=== PATIENT | female | born 1960 | race Caucasian/White ===

== ENCOUNTER 2016-06-16 02:40 | Observation (INO) | payer OTHER ==
[2016-06-16] MEDS ORDERED: MAG HYDROX/AL HYDROX/SIMETH 30 ML UDC PO STA (03:16)
[2016-06-16] MEDS ORDERED: LIDOCAINE VISCOUS 2% 15 ML UDC MM STA (03:16)
[2016-06-16] MEDS ORDERED: ASPIRIN CHEW 81 MG TABLET PO STA (03:17)
[2016-06-16] MEDS ORDERED: MAG HYDROX/AL HYDROX/SIMETH 30 ML UDC ONE (03:23)
[2016-06-16] MEDS ORDERED: LIDOCAINE VISCOUS 2% 15 ML UDC MM ONE (03:23)
[2016-06-16] MEDS ORDERED: ASPIRIN CHEW 81 MG TABLET ONE (03:23)
[2016-06-16] MEDS ORDERED: NITROGLYCERIN SL 0.4 MG TABLET SL STA (03:38)
[2016-06-16] MEDS ORDERED: NITROGLYCERIN SL 0.4 MG TABLET SL ONE ×2 (03:39→03:40)
[2016-06-16] MEDS ORDERED: ACETAMINOPHEN 1,000 MG/100 ML 100 ML IV STA (03:47)
[2016-06-16] MEDS ORDERED: ACETAMINOPHEN 1,000 MG/100 ML 100 ML IV ONE (03:48)
[2016-06-16] MEDS ORDERED: ONDANSETRON 4 MG/2 ML VIAL IVP STA (03:48)
[2016-06-16] MEDS ORDERED: ONDANSETRON 4 MG/2 ML VIAL ONE (03:49)
[2016-06-16] MEDS ORDERED: SODIUM CHLORIDE 0.9% 500 ML IV ONE (04:02)
[2016-06-16] MEDS ORDERED: SODIUM CHLORIDE FLUSH 0.9% 10 ML SYRINGE IVP PRN (05:12)
[2016-06-16] MEDS ORDERED: HYDROcod/ACETAM 10 MG/325 MG TABLET PO PRN (05:12)
[2016-06-16] MEDS ORDERED: ZOLPIDEM 5 MG TABLET PO PRN (05:12)
[2016-06-16] MEDS ORDERED: HYDROcod/ACETAM 5/325 MG TABLET PO PRN (05:12)
[2016-06-16] MEDS ORDERED: MORPHINE 2 MG/ML SYRINGE IVP PRN (05:12)
[2016-06-16] MEDS ORDERED: ACETAMINOPHEN 325 MG TABLET PO PRN (05:12)
[2016-06-16] MEDS ORDERED: NITROGLYCERIN SL 0.4 MG TABLET SL PRN (05:12)
[2016-06-16] MEDS ORDERED: ONDANSETRON 4 MG/2 ML VIAL IVP PRN (05:12)
[2016-06-16] MEDS ORDERED: SODIUM CHLORIDE FLUSH 0.9% 10 ML SYRINGE IVP SCH (06:00)
[2016-06-16] MEDS ORDERED: IBUPROFEN 800 MG TABLET PO PRN (06:43)
[2016-06-16] MEDS ORDERED: ZOLMITRIPTAN 2.5 MG PO PRN (06:43)
[2016-06-16] MEDS ORDERED: PANTOPRAZOLE 40 MG TABLET PO SCH (07:00)
[2016-06-16] MEDS ORDERED: POLYETHYLENE GLYCOL 3350 17 GM PACKET PO SCH (09:00)
[2016-06-16] MEDS ORDERED: ASPIRIN EC 81 MG TABLET PO SCH (09:00)
[2016-06-16] MEDS ORDERED: ENOXAPARIN 40 MG/0.4 ML SYRINGE SUBQ SCH (09:00)
== END 2016-06-16 09:30 | disposition home or self-care (01) ==
DX: R07.9 Chest pain, unspecified (principal); G43.909 Migraine, unspecified, not intractable, without status migrainosus; Z82.49 Family history of ischemic heart disease and other diseases of the circulatory system; I95.2 Hypotension due to drugs; T46.3X5A Adverse effect of coronary vasodilators, initial encounter; Y92.238 Other place in hospital as the place of occurrence of the external cause
CPT/HCPCS: 36415; 71010; 80053; 80061; 83690; 83721; 84484; 85025; 93005; 93010; 93306; 96374; 99284; A9270; G0378; J0131

== ENCOUNTER 2017-08-08 21:08 | Emergency (ER) | payer OTHER ==
--- NOTE | 2017-08-08 21:31 | ED Physician Documentation ---
PD HPI CHEST PAIN - Stated complaint Stated Complaint: CP/NAUSEA - Chief complaint Chief Complaint: Cardiac - History obtained from History obtained from: Patient - History of Present Illness Timing - onset: Today Timing - onset during: Rest Timing - details: Gradual onset, Intermittant Quality: Pressure, Tightness Location: Left chest, Right chest Radiation: Jaw, Left upper extremity Associated symptoms: Nausea. No: Shortness of air, Diaphoresis, Feeling faint / dizzy Similar symptoms before: Work up / diagnostics Recently seen: Not recently seen - Additional information Additional information: Patient is a 57 year old female with no significant past medical history who is presenting to the emergency department for chest pain. patient states that it started this morning. she had some chest tightness in her left chest. Patient' s father had an appointment that she had to go to so she just tried to ignore it. Patient states that the pain came back tonight so she decided to come back in to get checked out. Patient denies aggravating or alleviating factors. Patient had symptoms like this before but the work up and diagnostics were all negative. PD PAST MEDICAL HISTORY - Past Medical History Past Medical History: Yes Cardiovascular: None Respiratory: None Neuro: Headache/migraine Endocrine/Autoimmune: None GI: Diverticulitis : None HEENT: None Psych: None Musculoskeletal: None Derm: None - Past Surgical History Past Surgical History: Yes General: Appendectomy - Present Medications Home Medications: Ambulatory Orders Medication Instructions Recorded Confirmed Zolmitriptan [Zomig] 2.5 mg PO ONCE PRN 06/17/13 06/16/16 Ibuprofen 800 mg PO TID PRN MDD 2400 mg 06/16/16 06/16/16 Omeprazole [PriLOSEC] 20 mg PO DAILY 06/16/16 06/16/16 - Allergies Allergies/Adverse Reactions: Allergies Allergy/AdvReac Type Severity Reaction Status Date / Time an antifungal for yeast Allergy lip Uncoded 08/08/17 21:29 infections swelling - Social History Does the pt smoke?: No Smoking Status: Never smoker Does the pt drink ETOH?: No Does the pt have substance abuse?: No - Immunizations Immunizations are current?: Yes - POLST Patient has POLST: No Results - Vitals Vitals: Vital Signs - 24 hr 08/08/17 08/08/17 08/08/17 21:13 21:52 22:25 Temperature 36.3 C L Heart Rate 75 70 67 Respiratory 16 15 15 Rate Blood Pressure 166/104 H 145/96 H 136/90 H O2 Saturation 98 98 08/08/17 23:22 Temperature Heart Rate 62 Respiratory 15 Rate Blood Pressure 134/87 H O2 Saturation 95 Oxygen O2 Source Room air - EKG (time done) 2114 Rate: Rate (enter#) (71) Rhythm: NSR [place]: Normal Intervals: Normal NE QRS: Normal Ischemia: Normal ST segments Compare to prior EKG: Unchanged from prior EKG - Labs Labs: Laboratory Tests 08/08/17 08/08/17 08/08/17 21:25 21:25 21:25 WBC 6.1 RBC 4.59 Hgb 13.4 Hct 40.7 MCV 88.6 MCH 29.1 MCHC 32.8 RDW 13.2 Plt Count 294 MPV 8.5 Neut # 3.1 Lymph # 2.2 [place] # 0.5 Eos # 0.2 Baso # 0.1 Absolute Nucleated RBC 0.00 Nucleated RBC % 0.0 D-Dimer Sodium 138 Potassium 3.5 Chloride 104 Carbon Dioxide 25 Anion Gap 9.0 BUN 14 Creatinine 0.7 Estimated GFR (MDRD) 87 L Glucose 93 Calcium 9.2 Total Bilirubin 0.6 AST 41 ALT 46 Alkaline Phosphatase 79 Troponin I < 0.04 B-Natriuretic Peptide Total Protein 7.7 Albumin 4.7 Globulin 3.0 Albumin/Globulin Ratio 1.6 Lipase 27 TSH 08/08/17 08/08/17 08/08/17 21:25 21:25 21:25 WBC RBC Hgb Hct MCV MCH MCHC RDW Plt Count MPV Neut # Lymph # [place] # Eos # Baso # Absolute Nucleated RBC Nucleated RBC % D-Dimer 217.2 Sodium Potassium Chloride Carbon Dioxide Anion Gap BUN Creatinine Estimated GFR (MDRD) Glucose Calcium Total Bilirubin AST ALT Alkaline Phosphatase Troponin I B-Natriuretic Peptide 64 Total Protein Albumin Globulin Albumin/Globulin Ratio Lipase TSH 4.33 08/08/17 23:02 WBC RBC Hgb Hct MCV MCH MCHC RDW Plt Count MPV Neut # Lymph # [place] # Eos # Baso # Absolute Nucleated RBC Nucleated RBC % D-Dimer Sodium Potassium Chloride Carbon Dioxide Anion Gap BUN Creatinine Estimated GFR (MDRD) Glucose Calcium Total Bilirubin AST ALT Alkaline Phosphatase Troponin I < 0.04 B-Natriuretic Peptide Total Protein Albumin Globulin Albumin/Globulin Ratio Lipase TSH - Rads (name of study) chest x-ray Radiology: Final report received (normal) PD MEDICAL DECISION MAKING - ED course Complexity details: reviewed old records, reviewed results, re-evaluated patient , considered differential, d/w patient ED course: Patient was seen and examined at bedside. ekg was performed and was normal sinus rhythm. IV access was gained and labs were drawn. patient was treated with aspirin, zofran and ativan. Patient's blood pressure improved on its own. Patient reported that she had a stress test about two months ago and it was entirely normal. Patient's diagnostics were within normal limits including repeat troponin and d-dimer. While the exact etiology of the patient's pain is uncertain it is unlikely cardiac or pulmonary in nature. Patient had a HEART score of 1 Departure - Departure Disposition: 01 Home, Self Care Clinical Impression: Atypical chest pain Condition: Good Instructions: ED Chest Pain Atypical Unkn Cause Follow-Up: primary,care provider [Other] - As Needed Comments: Your diagnostics today were within normal limits. While it is difficult to say what exactly caused your pain it is unlikely cardiac or pulmonary in nature. It could be caused by gerd, inflammation, anxiety or some combinations of those things. You should try motrin or tylenol if the pain returns. You should follow up with your doctor this week. You may return to the emergency department at any time for new, worsening or uncontrollable symptoms.
[2017-08-08] MEDS ORDERED: LORazepam 2 MG/ML VIAL IVP STA (21:32)
[2017-08-08] MEDS ORDERED: ASPIRIN 325 MG TABLET PO STA (21:32)
[2017-08-08] MEDS ORDERED: ONDANSETRON 4 MG/2 ML VIAL IVP STA (21:32)
[2017-08-08 21:34] LABS: BASOPHILS # (AUTO) 0.1 10^3/uL (0.0-0.1); EOSINOPHILS # (AUTO) 0.2 10^3/uL (0.0-0.7); HGB - HEMOGLOBIN 13.4 g/dL (12.0-16.0); LYMPHOCYTES # (AUTO) 2.2 10^3/uL (1.5-3.5); LYMPHOCYTES % (AUTO) 36.5 %; MEAN CORPUSCULAR HEMOGLOBIN 29.1 pg (27.0-31.0); MEAN CORPUSCULAR HGB CONC 32.8 g/dL (32.0-36.0); MEAN CORPUSCULAR VOLUME 88.6 fL (81.0-99.0); MEAN PLATELET VOLUME 8.5 fL (7.9-10.8); MONOCYTES # (AUTO) 0.5 10^3/uL (0.0-1.0); MONOCYTES % (AUTO) 7.9 %; NEUTROPHILS # (AUTO) 3.1 10^3/uL (1.5-6.6); NEUTROPHILS % (AUTO) 50.6 %; PLT - PLATELET COUNT 294 10^3/uL (130-450); RED BLOOD COUNT 4.59 10^6/uL (4.20-5.40); RED CELL DISTRIBUTION WIDTH 13.2 % (12.0-15.0); WHITE BLOOD COUNT 6.1 x10^3/uL (4.8-10.8)
[2017-08-08 21:44] LABS: ALBUMIN 4.7 g/dL (3.2-5.5); ALBUMIN/GLOBULIN RATIO 1.6 (1.0-2.2); BILIRUBIN,TOTAL 0.6 mg/dL (0.2-1.0); CALCIUM 9.2 mg/dL (8.5-10.3); CREATININE 0.7 mg/dL (0.4-1.0); TOTAL PROTEIN 7.7 g/dL (6.7-8.2)
--- NOTE | 2017-08-08 22:04 | XRAY Report ---
EXAM: CHEST RADIOGRAPHY EXAM DATE: 08/08/2017 09:52 PM. CLINICAL HISTORY: Chest pain. COMPARISON: 06/16/2016. TECHNIQUE: 2 views. FINDINGS: Lungs/Pleura: No focal opacities evident. No pleural effusion. No pneumothorax. Normal volumes. Mediastinum: Heart and mediastinal contours are unremarkable. Other: None. IMPRESSION: Stable negative 2-view chest radiography. [facility] Referring Provider Line: [phone] SITE ID: [id number]
[2017-08-08 23:23] VITALS: BP 134/87
== END 2017-08-08 23:41 | disposition home or self-care (01) ==
LOC: ED 21:08
DX: R07.89 Other chest pain (principal)
CPT/HCPCS: 36415; 71046; 80053; 83690; 83880; 84443; 84484; 85025; 85379; 93005; 96374; 99284; A9270; J2060

== ENCOUNTER 2020-06-28 13:41 | Outpatient (CLI) | payer OTHER ==
--- NOTE | 2020-06-29 09:46 | Mammography Report ---
BILATERAL DIGITAL SCREENING MAMMOGRAM 3D/2D: 06/28/2020 CLINICAL: Routine screening. Comparison is made to exams dated: 02/19/2018 mammogram, 03/21/2017 mammogram, 07/27/2015 mammogram - [facility], 06/09/2004 stereotactic biopsy, 06/09/2004 specimen, and 05/31/2004 mammogram - [facility]. There are scattered fibroglandular elements in both breasts. No significant masses, calcifications, or other findings are seen in either breast. There has been no significant interval change. IMPRESSION: NEGATIVE There is no mammographic evidence of malignancy. A 1 year screening mammogram is recommended. This exam was interpreted at Station ID: [id number]. NOTE: For mammograms, a report in lay terms will be sent to the patient. Approximately 15% of breast malignancies will not be visualized mammographically. In the management of a palpable breast mass, a negative mammogram must not discourage biopsy of a clinically suspicious lesion. Electronically Signed By: Chemo melchor/penrad:06/28/2020 16:32:29 ACR BI-RADS Category 1: Negative 3341F PARENCHYMAL PATTERN: (A) - The breast(s) demonstrate(s) scattered fibroglandular densities. BI-RADS CATEGORY: (1) - 1 RECOMMENDATION: (ANNUAL) - Recommend routine annual screening mammography. [id number] 1 year screening LATERALITY: (B)
== END 2020-06-28 13:42 | disposition home or self-care (01) ==
LOC: DI.N 13:41
DX: Z12.31 Encounter for screening mammogram for malignant neoplasm of breast (principal)